=== PATIENT | female | born 1965 | race Caucasian/White ===

== ENCOUNTER → 2019-02-21 07:23 | Outpatient (CLI) | payer OTHER, SELFPAY ==
[2019-02-21 09:00] LABS: Alanine Aminotransferase 38 IU/L (9-52); Albumin 4.4 g/dL (3.5-5.0); Albumin Globulin Ratio 1.6 (1.0-2.8); Alkaline Phosphatase 65 U/L (38-126); Aspartate Aminotransferase 29 IU/L (14-36); BUN Creatinine Ratio 17.1 (6-22); Bilirubin Total 0.7 mg/dL (0.2-1.3); Blood Urea Nitrogen 12 mg/dL (7-17); Calcium 9.2 mg/dL (8.4-10.2); Carbon Dioxide 28 mmol/L (22-32); Chloride 106 mmol/L (98-107); Estimated Glomerular Filt Rate > 60.0 mL/min (>60); Globulin 2.7 g/dL (1.7-4.1); Glucose 107 mg/dL (70-100); HEMOLYSIS < 15 (0-50); Potassium 4.1 mmol/L (3.4-5.1); Sodium 143 mmol/L (137-145); Total Protein 7.1 g/dL (6.3-8.2)
[2019-02-21 09:18] LABS: Vitamin D 25 Hydroxy (D3) 26.2 ng/mL (30.0-100.0)
== END ==
PROVIDERS: PCP Student in an Organized Health Care Education/Training Program; Visit Provider Student in an Organized Health Care Education/Training Program
DX: E78.5 Hyperlipidemia, unspecified (principal); G47.30 Sleep apnea, unspecified; R94.5 Abnormal results of liver function studies; Z79.1 Long term (current) use of non-steroidal anti-inflammatories (NSAID); E55.9 Vitamin D deficiency, unspecified
CPT/HCPCS: 36415; 80053; 82306

== ENCOUNTER → 2019-04-05 19:41 | Outpatient (CLI) | payer OTHER, SELFPAY ==
--- NOTE | 2019-04-05 19:44 | DI.MRI.S_ITS ---
PROCEDURE: MR CERVICAL SPINE WO CON INDICATIONS: h/o TBI, right arm weakness TECHNIQUE: Noncontrast sagittal T1 spin echo and T2 fast spin echo, sagittal STIR, foraminal oblique sagittal T2 fast spin echo, and axial gradient echo or T2 fast spin echo through the cervical spine. COMPARISON: [facility], , C-SPINE WITHOUT CONTRAST, 07/25/2014, 14:12. FINDINGS: Image quality: Excellent. Alignment and Curvature: There is loss of normal cervical lordosis. There is mild grade 1 anterolisthesis of C3 on C4. Bone Marrow: Marrow demonstrates normal overall signal. There is mild reactive signal within the endplates adjacent to the C5-C6 and C6-C7 intervertebral discs. Spinal Cord: Visualized spinal cord has normal size and signal. No cerebellar tonsillar herniation. Paraspinous Soft Tissues: No paravertebral masses. Prevertebral soft tissues are normal in thickness. C2-C3: Normal appearance. C3-C4: Congenital canal stenosis. Mild disc height loss and desiccation. Mild diffuse disc bulge with superimposed central protrusion. Moderate canal stenosis. No foraminal stenosis. No change. C4-C5: Congenital canal stenosis. Mild disc height loss and desiccation. Mild diffuse disc bulge. Mild facet and uncovertebral hypertrophy. Moderate canal stenosis. Mild foraminal stenoses bilaterally. No change. C5-C6: Congenital canal stenosis. Moderate disc desiccation. Mild disc height loss. Moderate diffuse disc bulge. Moderate facet and uncovertebral hypertrophy bilaterally. Severe canal stenosis. Mild cord flattening. Moderate foraminal stenosis bilaterally. No change. C6-C7: Congenital canal stenosis. Moderate disc desiccation. Mild disc height loss. Moderate diffuse disc bulge. Mild facet and uncovertebral hypertrophy bilaterally. Moderate canal stenosis. No foraminal stenosis. No change. C7-T1: Normal appearance. IMPRESSION: 1. Diffuse congenital canal stenosis with superimposed disc and facet disease, as well as uncovertebral hypertrophy. 2. Multilevel canal stenoses, worst at C5-C6, where there is mild cord flattening. Additionally, moderate canal stenoses at C3-C4, C4-C5, and C6-C7 are present. 3. Multilevel foraminal stenoses, worst at C5-C6, where there are moderate foraminal stenoses. Dictated by: Tamia Hernandez M.D. on 04/06/2019 at 9:58 Approved by: Tamia Hernandez M.D. on 04/06/2019 at 10:10
== END ==
PROVIDERS: PCP Student in an Organized Health Care Education/Training Program; Visit Provider Student in an Organized Health Care Education/Training Program
DX: M48.02 Spinal stenosis, cervical region (principal); R29.898 Other symptoms and signs involving the musculoskeletal system; R20.2 Paresthesia of skin; Z87.820 Personal history of traumatic brain injury
CPT/HCPCS: 72141

== ENCOUNTER → 2020-03-15 07:52 | Outpatient (CLI) | payer OTHER, SELFPAY ==
--- NOTE | 2020-03-15 07:53 | DI.MRI.S_ITS ---
PROCEDURE: MR CERVICAL SPINE WO CON INDICATIONS: Neck pain; left arm parasthesia TECHNIQUE: Noncontrast sagittal T1 spin echo and T2 fast spin echo, sagittal STIR, foraminal oblique sagittal T2 fast spin echo, and axial gradient echo or T2 fast spin echo through the cervical spine. COMPARISON: [facility], MR, MR CERVICAL SPINE WO CON, 04/05/2019, 19:48. FINDINGS: Image quality: Excellent. Alignment and Curvature: There is loss of normal cervical lordosis. There is mild grade 1 anterolisthesis of C2 on C3 and C3 on C4. Mild grade 1 retrolisthesis of C5 on C6 and C6 on C7. Bone Marrow: Marrow demonstrates normal overall signal. Mild reactive signal within the endplates adjacent to the C2-C3, C3-C4, C4-C5, C5-C6, and C6-C7 intervertebral discs. Spinal Cord: Visualized spinal cord has normal size and signal. No cerebellar tonsillar herniation. Paraspinous Soft Tissues: No paravertebral masses. Prevertebral soft tissues are normal in thickness. C2-C3: Normal appearance. C3-C4: Congenital canal stenosis. Mild disc height loss and desiccation. Mild diffuse disc bulge with superimposed small central protrusion. Mild bilateral facet and uncovertebral hypertrophy. There is increased, severe canal stenosis with new minimal cord flattening. No change in mild bilateral foraminal stenosis. C4-C5: Congenital canal stenosis. Mild disc height loss and desiccation. Mild diffuse disc bulge. Mild facet and uncovertebral hypertrophy bilaterally. Moderate canal stenosis. Mild bilateral foraminal stenosis. No change. C5-C6: Congenital canal stenosis. Moderate disc height loss and desiccation. Moderate diffuse disc bulge. Moderate facet and uncovertebral hypertrophy bilaterally. Increased, severe canal stenosis with increased, mild to moderate cord flattening. Increased, severe left foraminal stenosis. No change in moderate right foraminal stenosis. New left C6 nerve root compression. C6-C7: Congenital canal stenosis. Moderate disc desiccation. Mild disc height loss. Moderate diffuse disc bulge with new superimposed left posterolateral protrusion. Mild facet and uncovertebral hypertrophy bilaterally. There is increased, severe canal stenosis with new mild cord flattening. There is increased, severe left foraminal stenosis with left C7 nerve root compression. There is new moderate right foraminal stenosis. C7-T1: Normal appearance. IMPRESSION: 1. Diffuse congenital canal stenosis with superimposed disc and facet disease, as well as uncovertebral hypertrophy. 2. Multilevel canal stenosis, worst at C3-C4, C5-C6, and C6-C7, where there is associated cord flattening. 3. Multilevel foraminal stenoses, worst at C5-C6 and C6-C7 where there is associated intraforaminal nerve root compression. Recommend correlation with clinical symptoms to ascertain relevance of this finding. Dictated by: Tamia Hernandez M.D. on 03/15/2020 at 8:49 Approved by: Tamia Hernandez M.D. on 03/15/2020 at 8:56
== END ==
PROVIDERS: PCP Student in an Organized Health Care Education/Training Program; Referring Provider Student in an Organized Health Care Education/Training Program; Visit Provider Student in an Organized Health Care Education/Training Program
DX: M48.02 Spinal stenosis, cervical region (principal); M54.2 Cervicalgia; R20.2 Paresthesia of skin
CPT/HCPCS: 72141

== ENCOUNTER → 2020-06-28 07:08 | Outpatient (CLI) | payer OTHER, SELFPAY ==
--- NOTE | 2020-06-28 | DI.MRI.S_ITS ---
PROCEDURE: MR CERVICAL SPINE WO/W CON INDICATIONS: Other spondylosis with radiculopathy TECHNIQUE: Noncontrast sagittal T1 spin echo and T2 fast spin echo, sagittal STIR, foraminal oblique sagittal T2 fast spin echo, axial gradient echo or T2 fast spin echo through the cervical spine. After the administration of contrast, axial and sagittal T1 spin echo with fat saturation through the cervical spine. COMPARISON: [facility], SPINE CERVICAL COMP W/ FL/EX, 08/23/2014, 14:31. FINDINGS: Image quality: Excellent. Alignment and curvature: There is normal bony alignment. Bones: Postsurgical changes compatible with C5-C6 and C6-C7 left foraminotomies. Marrow is normal in overall signal, without suspicious enhancement. Spinal cord: Visualized spinal cord has normal size and signal. No cerebellar tonsillar herniation. No abnormal intramedullary enhancement. Paraspinous soft tissues: No paravertebral masses or suspicious enhancement. C2-3: Slight loss of disc signal. No central stenosis. No neural foraminal narrowing. No neural compression. C3-4: Loss of disc signal. Mild, diffuse disc bulge. Small central disc protrusion. Moderate to severe narrowing of the central canal. No neural foraminal narrowing. Disc protrusion abuts and slightly contours the anterior margin of the cervical spinal cord. C4-5: Loss of disc signal. Mild, diffuse disc bulge. [id number] narrowing of the central canal. No neural foraminal narrowing. No neural compression. C5-6: Loss of disc signal and height. Moderate, diffuse disc bulge. Severe narrowing of the central canal with mild compression of the cervical spinal cord. Mild right uncovertebral joint hypertrophy. Moderate right and severe left neural foraminal narrowing with compression of the exiting left C6 nerve root. C6-7: Loss of disc signal and slight loss of disc height. Moderate, diffuse disc bulge. Moderate narrowing of the central canal. Mild bilateral uncovertebral joint hypertrophy. Moderate bilateral neural foraminal narrowing. No neural compression. C7-T1: Normal appearance. IMPRESSION: 1. Status post left C5-C6 and C6-C7 foraminotomies. 2. Multilevel degenerative disc disease. 3. Multilevel uncovertebral arthropathy. 4. Severe C5-C6 central canal narrowing with mild compression of the cervical spinal cord. Moderate to severe C3-C4 central canal narrowing with slight compression of the cervical spinal cord. 5. Severe left C5-C6 neural foraminal narrowing with compression of the exiting left C6 nerve root. 6. No suspicious postcontrast enhancement Dictated by: Geovanna Fuentes MD, PhD on 06/28/2020 at 11:25 Approved by: Geovanna Fuentes MD, PhD on 06/28/2020 at 11:45
== END ==
PROVIDERS: PCP Student in an Organized Health Care Education/Training Program; Referring Provider Student in an Organized Health Care Education/Training Program; Visit Provider Physician Assistant Surgical
DX: M47.22 Other spondylosis with radiculopathy, cervical region (principal); M50.20 Other cervical disc displacement, unspecified cervical region
CPT/HCPCS: 72156

== ENCOUNTER → 2020-08-24 10:54 | Outpatient (CLI) | payer OTHER, SELFPAY ==
--- NOTE | 2020-08-24 | DI.MG.S_ITS ---
BILATERAL DIGITAL SCREENING MAMMOGRAM 3D/2D WITH CAD: 08/24/2020 CLINICAL: Routine screening. Comparison is made to exams dated: 06/30/2017 mammogram, 04/18/2013 mammogram, and 05/09/2010 mammogram - [facility]. The tissue of both breasts is heterogeneously dense. This may lower the sensitivity of mammography. Current study was also evaluated with a Computer Aided Detection (CAD) system. There is an asymmetry in the right breast posterior depth central to the nipple. There also is a cluster of asymmetries with fine calcifications in the right breast middle depth inferior region. IMPRESSION: INCOMPLETE: NEEDS ADDITIONAL IMAGING EVALUATION The asymmetry in the right breast posterior depth central to the nipple seen on the mediolateral oblique view only is indeterminate. Additional views with possible ultrasound are recommended. The cluster of asymmetries in the right breast middle depth inferior region seen on the mediolateral oblique view only is indeterminate. Additional views with possible ultrasound are recommended. This exam was interpreted at Station ID: [id number]. NOTE: For mammograms, a report in lay terms will be sent to the patient. Approximately 15% of breast malignancies will not be visualized mammographically. In the management of a palpable breast mass, a negative mammogram must not discourage biopsy of a clinically suspicious lesion. Electronically Signed By: Harrison Bella M.D. jr/:08/24/2020 11:54:42 letter sent: Additional Imaging Needed ACR BI-RADS Category 0: Incomplete 3340F
== END ==
PROVIDERS: PCP Student in an Organized Health Care Education/Training Program; Referring Provider Student in an Organized Health Care Education/Training Program; Visit Provider Student in an Organized Health Care Education/Training Program
DX: Z12.31 Encounter for screening mammogram for malignant neoplasm of breast (principal)
CPT/HCPCS: 77063; 77067

== ENCOUNTER → 2020-09-18 12:36 | Outpatient (CLI) | payer OTHER, SELFPAY ==
--- NOTE | 2020-09-18 12:37 | DI.MG.S_ITS ---
UNILATERAL RIGHT DIGITAL DIAGNOSTIC MAMMOGRAM 3D/2D WITH ADDITIONAL VIEWS: 09/18/2020 CLINICAL: Additional evaluation requested from prior study. Comparison is made to exams dated: 08/24/2020 mammogram, 06/30/2017 mammogram, 04/18/2013 mammogram, and 05/09/2010 [facility]. The tissue of right breast is heterogeneously dense. This may lower the sensitivity of mammography. There is an asymmetry in the right breast posterior depth central to the nipple seen on the mediolateral oblique view only. There also is a cluster of asymmetries with fine calcifications in the right breast middle depth inferior region seen on the mediolateral oblique view only. No other significant masses or calcifications are seen in the breast. IMPRESSION: INCOMPLETE: NEEDS ADDITIONAL IMAGING EVALUATION The asymmetry in the right breast posterior depth central to the nipple seen on the mediolateral oblique view only is indeterminate. The cluster of asymmetries in the right breast middle depth inferior region seen on the mediolateral oblique view only is indeterminate. A targeted ultrasound is recommended and will immediately follow. This exam was interpreted at Station ID: [id number]. NOTE: For mammograms, a report in lay terms will be sent to the patient. Approximately 15% of breast malignancies will not be visualized mammographically. In the management of a palpable breast mass, a negative mammogram must not discourage biopsy of a clinically suspicious lesion. Electronically Signed By: Donald Maloney M.D. slc/:09/18/2020 13:30:46 ACR BI-RADS Category 0: Incomplete 3340F
--- NOTE | 2020-09-18 12:37 | DI.US.S_ITS ---
LIMITED ULTRASOUND OF RIGHT BREAST: 09/18/2020 CLINICAL: Patient returns today to evaluate focal asymmetries in the right breast. Comparison is made to exams dated: 09/18/2020 mammogram, 08/24/2020 mammogram, 06/30/2017 mammogram, 04/18/2013 mammogram, 05/09/2010 mammogram, and 05/09/2010 [facility]. Color flow and real-time ultrasound of the right breast 6 o'clock, 9 o'clock, 12 o'clock, and retroareolar regions were performed. Patel scale images of the real-time examination were reviewed. There is a benign 2.3 cm x 1.9 cm x 1.5 cm oval simple cyst in the right breast at 9 o'clock anterior depth. This oval simple cyst is anechoic with a well-defined boundary and posterior acoustic enhancement. This correlates with mammography findings. Color flow imaging demonstrates that there is no vascularity present. There also is a benign 1 cm x 0.9 cm x 0.7 cm oval simple cyst in the right breast at 6 o'clock middle depth. This oval simple cyst is anechoic with a well-defined boundary. This correlates with mammography findings. Color flow imaging demonstrates that there is no vascularity present. There are additional simple cysts in the retroareolar right breast. Subareolar area at 12:00 has the appearance of a collapsed cyst. Of note, large cysts were seen in this region on the remote ultrasound from 2009. IMPRESSION: BENIGN There is no sonographic evidence of malignancy. Several simple cysts in the retroareolar right breast which corresponds to the mammogram. These cysts are likely more conspicuous due to decreasing breast density. These cysts are reportedly not palpable to the patient. The 2.3 cm oval simple cyst in the right breast at 9 o'clock anterior depth is benign. The 1 cm oval simple cyst in the right breast at 6 o'clock middle depth is benign. Exam findings were conveyed to the patient. Patient is advised to monitor for significant change. A 1 year screening mammogram is recommended. This exam was interpreted at Station ID: [id number]. Electronically Signed By: Donald Maloney M.D. slc/:09/18/2020 15:01:05 letter sent: Normal Exam Ultrasound BI-RADS: 2 Benign
== END ==
PROVIDERS: PCP Student in an Organized Health Care Education/Training Program; Referring Provider Student in an Organized Health Care Education/Training Program; Visit Provider Student in an Organized Health Care Education/Training Program
DX: R92.8 Other abnormal and inconclusive findings on diagnostic imaging of breast (principal); N60.01 Solitary cyst of right breast
CPT/HCPCS: 76642; 77065; G0279

== ENCOUNTER → 2020-12-18 09:35 | Outpatient (CLI) | payer OTHER, SELFPAY ==
--- NOTE | 2020-12-18 | DI.MRI.S_ITS ---
PROCEDURE: MR CERVICAL SPINE WO CON INDICATIONS: SPONDYLOSIS OF CERVICAL REGION TECHNIQUE: Noncontrast sagittal T1 spin echo and T2 fast spin echo, sagittal STIR, foraminal oblique sagittal T2 fast spin echo, and axial gradient echo or T2 fast spin echo through the cervical spine. COMPARISON: [facility], MR, MR CERVICAL SPINE WO/W CON, 06/28/2020, 7:18. [facility], MR, MR CERVICAL SPINE WO CON, 03/15/2020, 8:02. [facility], MR, MR CERVICAL SPINE WO CON, 04/05/2019, 19:48. [facility], CR, SPINE CERVICAL COMP W/ FL/EX, 08/23/2014, 14:31. [facility], MR, C-SPINE WITHOUT CONTRAST, 07/25/2014, 14:12. FINDINGS: Image quality: Excellent. Alignment and Curvature: There is normal bony alignment. Bones: Postsurgical changes compatible with C5-C7 ACDF noted in the interval since the prior exam. Postsurgical changes compatible with prior C5-C6 and C6-C7 foramina Arvind stable compared to prior exam obtained June 28, 2020. Marrow demonstrates normal overall signal. Spinal Cord: Visualized spinal cord has normal size and signal. No cerebellar tonsillar herniation. Paraspinous Soft Tissues: No paravertebral masses. Prevertebral soft tissues are normal in thickness. C2-C3: Loss of disc signal. No central stenosis. No neural foraminal narrowing. No neural compression. C3-C4: Loss of disc signal. Mild, diffuse disc bulge. Small central disc protrusion is stable. Moderate narrowing of the central canal. No neural foraminal narrowing. No neural compression. C4-C5: Loss of disc signal. Mild, diffuse disc bulge. Mild narrowing of the central canal. No neural foraminal narrowing. No neural compression. C5-C6: Status post discectomy and fusion. No central stenosis. Mild right uncovertebral joint hypertrophy. Mild right neural foraminal narrowing. No neural compression. C6-C7: Status post discectomy and fusion. No central stenosis. No neural foraminal narrowing. No neural compression. C7-T1: Normal appearance. IMPRESSION: 1. C5-C7 ACDF. 2. Multilevel degenerative disc disease. 3. No severe central canal narrowing. 4. No severe neural foraminal narrowing. 5. No neural compression. Dictated by: Geovanna Fuentes MD, PhD on 12/18/2020 at 14:19 Approved by: Geovanna Fuentes MD, PhD on 12/18/2020 at 14:29
== END ==
PROVIDERS: PCP Student in an Organized Health Care Education/Training Program; Referring Provider Neurological Surgery; Visit Provider Neurological Surgery
DX: M47.22 Other spondylosis with radiculopathy, cervical region (principal); M50.11 Cervical disc disorder with radiculopathy, high cervical region; Z98.1 Arthrodesis status
CPT/HCPCS: 72141

== ENCOUNTER → 2021-03-08 07:57 | Outpatient (CLI) | payer OTHER, SELFPAY ==
--- NOTE | 2021-03-08 07:58 | DI.ECHO.S_ITS ---
[place] [facility]---------+ [facility] +---------+ : : [address] : : : : [id number] : : : : Phone: [phone] Echocardiogram Report + + :Name: FELIPA FRANCISCO Study Date: 03/08/2021 Height: 66 in : :[facility] ReadingLocation: Weight: 185 lb : : Gender: Female BSA: 1.9 m2 : :: 1965 Age: 56 yrs BP: 125/94 mmHg: :Reason For Study: Palpitations : :Ordering Physician: LATISHA : :JUDIT Performed By: Jasiel Porter : :Referring: JUDIT GOOD : + + Interpretation Summary 1) Normal left ventricular thickness, size, wall motion, and systolic function (EF 55-60%). 2) Normal right ventricular size and function. 3) No significant valvular abnormalities. 4) No prior Echo available for comparison. Procedure: A two-dimensional transthoracic echocardiogram with color flow and Doppler was performed. The study quality was technically adequate. There is no prior echocardiogram noted for this patient. The patient was in sinus rhythm with heart rates between 72-91 bpm during the exam. Left Ventricle: The left ventricle is normal in size and wall thickness. Left ventricular systolic function is normal. The ejection fraction is estimated to be 55-60%. There are no focal wall motion abnormalities. Diastolic parameters suggest probable normal left ventricular diastolic function and normal filling pressures. Right Ventricle: The right ventricle is normal in size and function. Mitral Valve: The mitral valve is normal in structure and function. There is trace mitral regurgitation. Aortic Valve: The aortic valve is normal in structure and function. There is no aortic valve stenosis. No aortic regurgitation is present. Tricuspid Valve: The tricuspid valve is normal in structure and function. There is mild tricuspid regurgitation. The right ventricular systolic pressure is estimated to be at least 28 mmHg based on an estimated right atrial pressure of 3 mm Hg. Pulmonic Valve: The pulmonic valve is normal in structure and function. There is no pulmonic valvular regurgitation. Great Vessels: The aortic root is normal size. The dimensions of the ascending aorta are normal. The IVC is of normal diameter and collapses greater than 50% with a sniff. This suggests a low right atrial pressure of 3 mm Hg. Pericardium/ Pleura There is no pericardial effusion. There is no pleural effusion. MMode/2D Measurements & Calculations LVIDd: 4.7 cm LVOT diam: 2.2 cm LVIDs: 3.1 cm Ao root diam: 2.9 cm FS: 34.3 % asc Aorta Diam: 3.2 cm IVSd: 0.93 cm LVPWd: 0.65 cm LV garcia. diameter/BSA (cm/m^2): 2.4 LV sys. diameter/BSA (cm/m^2): 1.6 LA A2 area: 14.0 cm2 RA long axis: 4.0 cm LA A4 area: 15.0 cm2 RA area: 10.8 cm2 LA length (vol): 4.4 cm RA vol: 24.8 ml LA vol: 40.7 ml RA : 12.8 ml/m2 LA vol index: 21.0 ml/m2 RVD1 (basal): 3.4 cm TAPSE: 2.1 cm Doppler Measurements & Calculations Ao V2 max: 130.9 cm/sec LVOT Max Benito: 129.4 cm/sec Ao V2 mean: 92.9 cm/sec LV V1 max P.7 mmHg Ao max P.9 mmHg LV V1 VTI: 25.2 cm Ao mean P.8 mmHg CHARLEY(I,D): 3.4 cm2 Ao V2 VTI: 26.7 cm CHARLEY(V,D): 3.6 cm2 sev ratio: 0.95 CHARLEY indexed to BSA (cm^2/m^2): 1.8 MV E max benito: 85.5 cm/sec TR max benito: 250.6 cm/sec MV A max benito: 90.5 cm/sec TR max P.1 mmHg MV E/A: 0.94 PA pr(Accel): 36.2 mmHg Med Peak E' Benito: 8.3 cm/sec E/E' med: 10.3 Lat Peak E' Benito: 11.9 cm/sec E/E' lat: 7.2 E/e' average: 8.8 MV dec time: 0.19 sec SV(LVOT): 92.0 ml Reading Physician:12:39 PM
== END ==
PROVIDERS: PCP Student in an Organized Health Care Education/Training Program; Referring Provider Student in an Organized Health Care Education/Training Program; Visit Provider Student in an Organized Health Care Education/Training Program
DX: I07.1 Rheumatic tricuspid insufficiency (principal); R00.2 Palpitations
CPT/HCPCS: 93306

== ENCOUNTER → 2021-10-30 17:17 | Outpatient (CLI) | payer OTHER, SELFPAY ==
--- NOTE | 2021-10-30 | DI.MG.S_ITS ---
BILATERAL DIGITAL SCREENING MAMMOGRAM 3D/2D WITH CAD: 10/30/2021 CLINICAL: Routine screening. Comparison is made to exams dated: 09/18/2020 mammogram, 08/24/2020 mammogram, 06/30/2017 mammogram, 09/18/2020 ultrasound, 04/18/2013 mammogram, and 06/07/2009 mammogram - [facility]. The tissue of both breasts is heterogeneously dense. This may lower the sensitivity of mammography. Current study was also evaluated with a Computer Aided Detection (CAD) system. No significant masses, calcifications, or other findings are seen in either breast. There has been no significant interval change. IMPRESSION: NEGATIVE There is no mammographic evidence of malignancy. A 1 year screening mammogram is recommended. This exam was interpreted at Station ID: [id number]. NOTE: For mammograms, a report in lay terms will be sent to the patient. Approximately 15% of breast malignancies will not be visualized mammographically. In the management of a palpable breast mass, a negative mammogram must not discourage biopsy of a clinically suspicious lesion. Electronically Signed By: Donald longo/petrona:10/31/2021 09:10:58 letter sent: Normal Exam ACR BI-RADS Category 1: Negative 3341F
== END ==
PROVIDERS: PCP Student in an Organized Health Care Education/Training Program; Referring Provider Student in an Organized Health Care Education/Training Program; Visit Provider Student in an Organized Health Care Education/Training Program
DX: Z12.31 Encounter for screening mammogram for malignant neoplasm of breast (principal)
CPT/HCPCS: 77063; 77067

== ENCOUNTER → 2022-06-23 07:16 | Outpatient (CLI) | payer OTHER, SELFPAY ==
[2022-06-23 09:21] LABS: Add Manual Diff / Slide Review NO; Basophils Absolute Auto 0 /uL (0-100); Basophils Percent Auto 0.2 % (0-2); Eosinophils Absolute Auto 100 /uL (0-450); Hematocrit 40.1 % (36-46); Hemoglobin 13.5 g/dL (12.0-16.0); Lymphocytes Absolute Auto 700 /uL (1100-4500); Lymphocytes Percent Auto 11.4 % (25-40); Mean Corpuscular HGB Conc 33.8 % (30-36); Mean Corpuscular Hemoglobin 29.3 PG (26-34); Mean Corpuscular Volume 86.8 fL (80-100); Monocytes Absolute Auto 300 /uL (0-900); Monocytes Percent Auto 4.8 % (3-14); Neutrophils Absolute Auto 5300 /uL (1500-7000); Neutrophils Percent Auto 81.6 % (50-75); Platelet Count 250 X10^3/uL (150-400); Red Blood Cell Count 4.62 X10^6/uL (4.0-5.2); Red Cell Distribution Width 14.4 % (11.6-14.8); White Blood Cell Count 6.5 X10^3/uL (4.5-11.0)
[2022-06-23 09:47] LABS: Alanine Aminotransferase 46 IU/L (<35); Albumin 4.3 g/dL (3.5-5.0); Albumin Globulin Ratio 1.5 (1.0-2.8); Alkaline Phosphatase 81 U/L (38-126); Aspartate Aminotransferase 32 IU/L (14-36); BUN Creatinine Ratio 16.7 (6-22); Bilirubin Total 0.6 mg/dL (0.2-1.3); Blood Urea Nitrogen 13 mg/dL (7-17); Calcium 8.8 mg/dL (8.4-10.2); Carbon Dioxide 26 mmol/L (22-32); Chloride 105 mmol/L (98-107); Cholesterol 177 mg/dL (140-199); Estimated Glomerular Filt Rate > 60 mL/min (>60); Globulin 2.9 g/dL (1.7-4.1); Glucose 101 mg/dL (70-100); HDL Cholesterol 65 mg/dL (40-60); HEMOLYSIS < 15 (0-50); LDL Cholesterol Calculated 99 mg/dL (<100); Sodium 140 mmol/L (137-145); Total Protein 7.2 g/dL (6.3-8.2); Triglycerides 67 mg/dL (35-150)
[2022-06-23 10:10] LABS: TSH w/ Reflex to FT4 1.11 uIU/mL (0.47-4.68)
== END ==
PROVIDERS: PCP Family Medicine; Referring Provider Family Medicine; Visit Provider Family Medicine
DX: E78.2 Mixed hyperlipidemia (principal); F41.1 Generalized anxiety disorder; I10 Essential (primary) hypertension; M48.02 Spinal stenosis, cervical region; M54.12 Radiculopathy, cervical region
CPT/HCPCS: 36415; 80053; 80061; 84443; 85025

== ENCOUNTER → 2022-07-15 10:06 | Outpatient (CLI) | payer OTHER, SELFPAY ==
--- NOTE | 2022-07-15 10:09 | DI.RAD.S_ITS ---
PROCEDURE: XR FOOT RT MIN 3V INDICATIONS: right foot pain TECHNIQUE: 3 views of the foot were acquired. COMPARISON: None. FINDINGS: Bones: No fractures or dislocations. No suspicious bony lesions. Soft tissues: No tibiotalar joint effusion. Achilles tendon appears normal. IMPRESSION: No acute radiographic findings. If pain persists, followup imaging in 5-7 days is recommended to exclude occult fracture. Dictated by: Rosa English M.D. on 07/15/2022 at 12:29 Approved by: Rosa English M.D. on 07/15/2022 at 12:31
== END ==
PROVIDERS: PCP Family Medicine; Referring Provider Family Medicine; Visit Provider Family Medicine
DX: M79.674 Pain in right toe(s) (principal)
CPT/HCPCS: 73630

== ENCOUNTER → 2023-06-25 07:19 | Outpatient (CLI) | payer OTHER, SELFPAY ==
[2023-06-25 08:31] LABS: Add Manual Diff / Slide Review NO; Basophils Absolute Auto 0 /uL (0-100); Basophils Percent Auto 0.6 % (0-2); Eosinophils Absolute Auto 100 /uL (0-450); Hematocrit 39.3 % (36-46); Hemoglobin 13.4 g/dL (12.0-16.0); Lymphocytes Absolute Auto 1300 /uL (1100-4500); Mean Corpuscular HGB Conc 34.2 % (30-36); Mean Corpuscular Hemoglobin 29.9 PG (26-34); Mean Corpuscular Volume 87.5 fL (80-100); Monocytes Absolute Auto 400 /uL (0-900); Monocytes Percent Auto 7.9 % (3-14); Neutrophils Absolute Auto 3100 /uL (1500-7000); Neutrophils Percent Auto 62.5 % (50-75); Platelet Count 213 X10^3/uL (150-400); Red Blood Cell Count 4.49 X10^6/uL (4.0-5.2); Red Cell Distribution Width 14.2 % (11.6-14.8)
[2023-06-25 09:23] LABS: Alanine Aminotransferase 36 IU/L (<35); Albumin 4.4 g/dL (3.5-5.0); Albumin Globulin Ratio 1.6 (1.0-2.8); Alkaline Phosphatase 59 U/L (38-126); Aspartate Aminotransferase 30 IU/L (14-36); BUN Creatinine Ratio 19.4 (6-22); Bilirubin Total 0.8 mg/dL (0.2-1.3); Blood Urea Nitrogen 13 mg/dL (7-17); Calcium 9.2 mg/dL (8.4-10.2); Carbon Dioxide 27 mmol/L (22-32); Chloride 103 mmol/L (98-107); Cholesterol 174 mg/dL (140-199); Estimated Glomerular Filt Rate > 60 mL/min (>60); Globulin 2.8 g/dL (1.7-4.1); Glucose 98 mg/dL (70-100); HDL Cholesterol 73 mg/dL (40-60); HEMOLYSIS < 15 (0-50); LDL Cholesterol Calculated 89 mg/dL (<100); Potassium 4.2 mmol/L (3.4-5.1); Sodium 137 mmol/L (137-145); Total Protein 7.2 g/dL (6.3-8.2); Triglycerides 58 mg/dL (35-150)
== END ==
PROVIDERS: PCP Family Medicine; Referring Provider Family Medicine; Visit Provider Family Medicine
DX: I10 Essential (primary) hypertension (principal); E78.2 Mixed hyperlipidemia
CPT/HCPCS: 36415; 80053; 80061; 85025

== ENCOUNTER → 2023-07-13 08:59 | Outpatient (CLI) | payer OTHER, SELFPAY ==
--- NOTE | 2023-07-13 09:00 | DI.RAD.S_ITS ---
PROCEDURE: XR CERVICAL SPINE 4V OR 5V INDICATIONS: neck pain TECHNIQUE: 5 views of the cervical spine acquired. COMPARISON: [facility], MR, MR CERVICAL SPINE WO CON, 12/18/2020, 9:54. FINDINGS: Bones: Expected of orthopedic hardware, status post ACDF at C5 through C7 with anterior plate and screw fixation and interbody spacer material placement. No evidence of hardware failure or loosening. No fractures or dislocations to the T1 level. Oblique images demonstrate mild right bony foraminal narrowing at C5-C6. Soft tissues: No prevertebral soft tissue swelling. IMPRESSION: Expected appearance of orthopedic surgical hardware. Mild right foraminal narrowing at C5-C6. Dictated by: Kevin Parr M.D. on 07/13/2023 at 11:06 Approved by: Kevin Parr M.D. on 07/13/2023 at 11:10
== END ==
PROVIDERS: PCP Family Medicine; Referring Provider Anesthesiology; Visit Provider Anesthesiology
DX: M47.22 Other spondylosis with radiculopathy, cervical region (principal); M48.02 Spinal stenosis, cervical region; M54.2 Cervicalgia; Z98.1 Arthrodesis status
CPT/HCPCS: 72050; 99214

== ENCOUNTER → 2024-04-01 08:17 | Outpatient (CLI) | payer OTHER, SELFPAY ==
--- NOTE | 2024-04-01 08:19 | DI.MG.S_ITS ---
BILATERAL DIGITAL SCREENING MAMMOGRAM 3D/2D WITH CAD: 04/01/2024 CLINICAL: Routine screening. Comparison is made to exams dated: 10/30/2021 mammogram, 08/24/2020 mammogram, and 06/30/2017 mammogram - [facility]. Both breasts are heterogeneously dense, which may obscure small masses (category c / 51-75% glandular tissue). Current study was also evaluated with a Computer Aided Detection (CAD) system. No significant masses, calcifications, or other findings are seen in either breast. There has been no significant interval change. IMPRESSION: NEGATIVE There is no mammographic evidence of malignancy. A 1 year screening mammogram is recommended. Based on the Tyrer Cuzick model (a risk assessment model) the patient's lifetime risk is 10.2% and her 10 year risk is 4.0%. According to the ACR, ACS, and NCCN guidelines, an annual breast MRI exam along with mammogram is recommended if the patient's lifetime risk is 20% or greater. This exam was interpreted at Station ID: [id number]. NOTE: For mammograms, a report in lay terms will be sent to the patient. Approximately 15% of breast malignancies will not be visualized mammographically. In the management of a palpable breast mass, a negative mammogram must not discourage biopsy of a clinically suspicious lesion. Electronically Signed By: Edouard morton/petrona:04/01/2024 09:58:15 letter sent: Normal Exam ACR BI-RADS Category 1: Negative [id number]
== END ==
PROVIDERS: PCP Family Medicine; Referring Provider Family Medicine; Visit Provider Family Medicine
DX: Z12.31 Encounter for screening mammogram for malignant neoplasm of breast (principal); R92.333 Mammographic heterogeneous density, bilateral breasts
CPT/HCPCS: 77063; 77067

== ENCOUNTER → 2025-02-07 13:34 | Outpatient (CLI) | payer OTHER, SELFPAY ==
[2025-02-07 14:49] LABS: Add Manual Diff / Slide Review NO; Hematocrit 40.5 % (36-46); Hemoglobin 13.7 g/dL (12.0-16.0); Lymphocytes Absolute Auto 2000 /uL (1100-4500); Mean Corpuscular HGB Conc 33.7 % (30-36); Mean Corpuscular Hemoglobin 29.3 PG (26-34); Mean Corpuscular Volume 86.9 fL (80-100); Platelet Count 312 X10^3/uL (150-400)
[2025-02-07 14:56] LABS: Hemoglobin A1C% w Est Avg Glu 6.0 % (4.0-6.0)
[2025-02-07 15:14] LABS: Alanine Aminotransferase 33 IU/L (<35); Albumin 4.8 g/dL (3.5-5.0); Albumin Globulin Ratio 1.7 (1.0-2.8); Alkaline Phosphatase 75 U/L (38-126); Blood Urea Nitrogen 13 mg/dL (7-17); Calcium 9.7 mg/dL (8.4-10.2); Carbon Dioxide 26 mmol/L (22-32); Chloride 101 mmol/L (98-107); Estimated Glomerular Filt Rate > 60 mL/min (>60); Globulin 2.9 g/dL (1.7-4.1); Glucose 95 mg/dL (70-99); HEMOLYSIS < 15 (0-50); Potassium 4.1 mmol/L (3.4-5.1); Sodium 138 mmol/L (137-145); Total Protein 7.7 g/dL (6.3-8.2)
[2025-02-07 16:40] LABS: Vitamin D 25 Hydroxy (D3) 41.1 ng/mL (30.0-100.0)
== END ==
PROVIDERS: PCP Family Medicine; Referring Provider Physician Assistant; Visit Provider Physician Assistant
DX: B35.4 Tinea corporis (principal); E55.9 Vitamin D deficiency, unspecified
CPT/HCPCS: 36415; 80053; 82306; 83036; 85025

== ENCOUNTER → 2025-05-15 07:59 | Outpatient (CLI) | payer OTHER, SELFPAY ==
--- NOTE | 2025-05-15 08:00 | DI.MG.S_ITS ---
MM screening mammo BI: 05/15/2025. BI-RADS: 1 CLINICAL: 60-year old female for bilateral screening mammogram. Tyrer-Cuzick lifetime risk of 7.9%. No personal or first-degree family history of breast cancer. The patient had a prior left breast biopsy. PRIOR EXAMS: 04/01/2024, 10/30/2021, 09/18/2020, 08/24/2020, 06/30/2017. MAMMOGRAPHY TECHNIQUE: 2D and 3D (tomosynthesis) digital mammographic views obtained, with additional images as needed for full coverage. Current study was also evaluated with a Computer Aided Detection (CAD) system. DENSITY C. The breasts are heterogeneously dense, which may obscure small masses. MAMMOGRAPHY FINDINGS Bilateral: No suspicious mass, asymmetry, microcalcification, or other abnormality seen. IMPRESSION: * No evidence of malignancy. RECOMMENDATIONS Bilateral * Annual screening mammography. OVERALL ASSESSMENT CATEGORY BI-RADS-1: Negative. The [employer] recommends annual screening mammography beginning at age 40 for women with average risk of breast cancer. ELECTRONICALLY SIGNED: Rebeca Diamond M.D. on 05/15/2025 at 12:17:33 PM PT Interpreting Station ID: [id number]
== END ==
LOC: MAMMO 08:00
PROVIDERS: PCP Family Medicine; Referring Provider Family Medicine; Visit Provider Family Medicine
DX: Z12.31 Encounter for screening mammogram for malignant neoplasm of breast (principal); R92.333 Mammographic heterogeneous density, bilateral breasts
CPT/HCPCS: 77063; 77067